=== PATIENT | female | born 1960 | race Caucasian/White ===

== ENCOUNTER 2016-09-16 06:48 | Day surgery (SDC) | payer OTHER ==
[~2016-09-16] VITALS: Ht 160 cm; Wt 67.6 kg
[~2016-09-16 06:48] MED LIST: FLAGYL500 MG PO; FLEXERIL10 MG PO; INDERAL40 MG PO; LEXAPRO20 MG PO; MOBIC7.5 MG PO; NEURONTIN300 MG PO; OXAYDO5 MG PO; PRILOSEC20 MG PO; SINGULAIR10 MG PO; TAPAZOLE10 MG PO; TOPAMAX50 MG PO; UNSURE OF MEDS; VIBRAMYCIN100 MG PO; ZOCOR20 MG PO; ZYRTEC10 M2 PO
== END 2016-09-16 09:10 | disposition home or self-care (01) ==
LOC: PAIN 06:48 → SDC 07:30 → PAIN 09:10
PROC: 3E0S33Z Introduction of Anti-inflammatory into Epidural Space, Percutaneous Approach (ICD-10-PCS; principal; 2016-09-16)
DX: M54.13 Radiculopathy, cervicothoracic region (principal); M50.23 Other cervical disc displacement, cervicothoracic region; M48.02 Spinal stenosis, cervical region; F41.1 Generalized anxiety disorder; K21.9 Gastro-esophageal reflux disease without esophagitis; F17.200 Nicotine dependence, unspecified, uncomplicated; I10 Essential (primary) hypertension; E05.90 Thyrotoxicosis, unspecified without thyrotoxic crisis or storm; E78.5 Hyperlipidemia, unspecified; F32.9 Major depressive disorder, single episode, unspecified
CPT/HCPCS: J1030; J2250; J3010

== ENCOUNTER 2016-11-30 12:32 | Day surgery (SDC) | payer OTHER ==
[~2016-11-30] VITALS: Ht 160 cm; Wt 69.5 kg
[~2016-11-30 12:32] MED LIST changes: +QUESTRAN PACKET4 GM PO
[2016-12-03] MEDS ORDERED: ZANAFLEX4 MG PO (08:52)
[2016-12-03] MEDS ORDERED: TAPAZOLE10 MG PO (08:53)
[2016-12-03] MEDS ORDERED: OMEPRAZOLE40 M1 PO (08:59)
[2016-12-03] MEDS ORDERED: FLONASE ALLERG9.9 ML BOTH NARES (08:59)
== END 2016-11-30 14:50 | disposition home or self-care (01) ==
LOC: PAIN 12:32 → SDC 13:15 → PAIN 14:50
DX: M47.22 Other spondylosis with radiculopathy, cervical region (principal); F41.9 Anxiety disorder, unspecified; M48.02 Spinal stenosis, cervical region; M47.816 Spondylosis without myelopathy or radiculopathy, lumbar region; M62.838 Other muscle spasm; M19.90 Unspecified osteoarthritis, unspecified site; K21.9 Gastro-esophageal reflux disease without esophagitis; I10 Essential (primary) hypertension; E03.9 Hypothyroidism, unspecified; G43.909 Migraine, unspecified, not intractable, without status migrainosus; F17.210 Nicotine dependence, cigarettes, uncomplicated; E78.5 Hyperlipidemia, unspecified; Z88.0 Allergy status to penicillin; Z88.2 Allergy status to sulfonamides
CPT/HCPCS: J1030; J2250; J3010; S0020

== ENCOUNTER 2016-12-07 10:40 | Day surgery (SDC) | payer OTHER ==
[~2016-12-07] VITALS: Ht 160 cm; Wt 69.5 kg
[~2016-12-07 10:40] MED LIST changes: +FLONASE ALLERG9.9 ML BOTH NARES; +OMEPRAZOLE40 M1 PO; +ZANAFLEX4 MG PO
== END 2016-12-07 12:46 | disposition home or self-care (01) ==
LOC: PAIN 10:40 → SDC 11:30 → PAIN 11:30
DX: M47.22 Other spondylosis with radiculopathy, cervical region (principal); F41.9 Anxiety disorder, unspecified; M54.2 Cervicalgia; M48.02 Spinal stenosis, cervical region; M47.816 Spondylosis without myelopathy or radiculopathy, lumbar region; M62.838 Other muscle spasm; M19.90 Unspecified osteoarthritis, unspecified site; K21.9 Gastro-esophageal reflux disease without esophagitis; I83.10 Varicose veins of unspecified lower extremity with inflammation; I10 Essential (primary) hypertension; E03.9 Hypothyroidism, unspecified; G43.909 Migraine, unspecified, not intractable, without status migrainosus; Z88.0 Allergy status to penicillin; Z88.2 Allergy status to sulfonamides
CPT/HCPCS: J1030; J2250; J3010; S0020

== ENCOUNTER 2017-04-04 07:52 | Day surgery (SDC) | payer OTHER ==
[~2017-04-04] VITALS: Ht 160 cm; Wt 72.1 kg
[~2017-04-04 07:52] MED LIST changes: +ENDOCET 5-3251 EACH PO
== END 2017-04-04 10:42 | disposition home or self-care (01) ==
LOC: PAIN 07:52 → SDC 08:30 → PAIN 10:42
PROC: 01513ZZ Destruction of Cervical Nerve, Percutaneous Approach (ICD-10-PCS; principal; 2017-04-04)
DX: M47.22 Other spondylosis with radiculopathy, cervical region (principal); M48.02 Spinal stenosis, cervical region; F41.9 Anxiety disorder, unspecified; M47.816 Spondylosis without myelopathy or radiculopathy, lumbar region; I10 Essential (primary) hypertension; E05.90 Thyrotoxicosis, unspecified without thyrotoxic crisis or storm; G43.909 Migraine, unspecified, not intractable, without status migrainosus; K21.9 Gastro-esophageal reflux disease without esophagitis; E03.9 Hypothyroidism, unspecified; E78.5 Hyperlipidemia, unspecified; G62.9 Polyneuropathy, unspecified; F17.210 Nicotine dependence, cigarettes, uncomplicated; Z88.0 Allergy status to penicillin; Z88.2 Allergy status to sulfonamides
CPT/HCPCS: J1030; J2250; J3010

== ENCOUNTER 2017-04-11 07:38 | Day surgery (SDC) | payer OTHER ==
[~2017-04-11] VITALS: Ht 160 cm; Wt 72.1 kg
== END 2017-04-11 09:30 | disposition home or self-care (01) ==
LOC: PAIN 07:38 → SDC 08:30 → PAIN 08:30
PROC: 01513ZZ Destruction of Cervical Nerve, Percutaneous Approach (ICD-10-PCS; principal; 2017-04-11)
DX: M47.22 Other spondylosis with radiculopathy, cervical region (principal); M47.816 Spondylosis without myelopathy or radiculopathy, lumbar region; M62.838 Other muscle spasm; F41.9 Anxiety disorder, unspecified; G62.9 Polyneuropathy, unspecified; I10 Essential (primary) hypertension; E03.9 Hypothyroidism, unspecified; G43.909 Migraine, unspecified, not intractable, without status migrainosus; F17.210 Nicotine dependence, cigarettes, uncomplicated; K21.9 Gastro-esophageal reflux disease without esophagitis; E05.90 Thyrotoxicosis, unspecified without thyrotoxic crisis or storm; E78.5 Hyperlipidemia, unspecified; Z88.0 Allergy status to penicillin; Z88.2 Allergy status to sulfonamides
CPT/HCPCS: J1030; J2250; J3010; S0020

== ENCOUNTER → 2017-08-24 | Outpatient (CLI) | payer OTHER | END | disposition home or self-care (01) | LOC: NUC 07:00 | DX: R68.81 Early satiety (principal); R10.13 Epigastric pain; R11.0 Nausea | CPT/HCPCS: 78264; A9541 ==

== ENCOUNTER 2017-09-29 10:47 | Day surgery (SDC) | payer OTHER ==
[~2017-09-29] VITALS: Ht 160 cm; Wt 72.6 kg
[~2017-09-29 10:47] MED LIST changes: +COQ1050 MG PO; +REGLAN5 MG PO; +TAPAZOLE5 MG PO; +VENTOLIN HFA18 GM IH; +ZOFRAN4 MG PO
== END 2017-09-29 12:30 | disposition home or self-care (01) ==
LOC: PAIN 10:47 → SDC 11:30 → PAIN 11:30
DX: M47.816 Spondylosis without myelopathy or radiculopathy, lumbar region (principal); M54.16 Radiculopathy, lumbar region; M47.812 Spondylosis without myelopathy or radiculopathy, cervical region; M54.12 Radiculopathy, cervical region; I10 Essential (primary) hypertension; E78.00 Pure hypercholesterolemia, unspecified; K21.9 Gastro-esophageal reflux disease without esophagitis; E03.9 Hypothyroidism, unspecified; F17.200 Nicotine dependence, unspecified, uncomplicated; G62.9 Polyneuropathy, unspecified; M48.02 Spinal stenosis, cervical region; Z79.891 Long term (current) use of opiate analgesic; Z88.0 Allergy status to penicillin; Z88.2 Allergy status to sulfonamides
CPT/HCPCS: J1030; J2250; J3010; S0020

== ENCOUNTER 2017-10-06 07:59 | Day surgery (SDC) | payer OTHER ==
[~2017-10-06] VITALS: Ht 160 cm; Wt 72.6 kg
== END 2017-10-06 09:43 | disposition home or self-care (01) ==
LOC: PAIN 07:59 → SDC 08:45 → PAIN 09:43
DX: M47.816 Spondylosis without myelopathy or radiculopathy, lumbar region (principal); M54.16 Radiculopathy, lumbar region; M47.812 Spondylosis without myelopathy or radiculopathy, cervical region; G62.9 Polyneuropathy, unspecified; M48.02 Spinal stenosis, cervical region; M54.12 Radiculopathy, cervical region; K21.9 Gastro-esophageal reflux disease without esophagitis; I10 Essential (primary) hypertension; E78.00 Pure hypercholesterolemia, unspecified; E03.9 Hypothyroidism, unspecified; Z79.891 Long term (current) use of opiate analgesic; Z88.2 Allergy status to sulfonamides; Z88.0 Allergy status to penicillin; F17.200 Nicotine dependence, unspecified, uncomplicated
CPT/HCPCS: 93005; J1030; J2250; J3010; S0020

== ENCOUNTER 2018-01-23 09:16 | Day surgery (SDC) | payer OTHER ==
[~2018-01-23] VITALS: Ht 160 cm; Wt 72.6 kg
[~2018-01-23 09:16] MED LIST changes: +CYMBALTA60 MG PO
== END 2018-01-23 10:50 | disposition home or self-care (01) ==
LOC: PAIN 09:16 → SDC 10:00 → PAIN 10:50
DX: M47.816 Spondylosis without myelopathy or radiculopathy, lumbar region (principal); M54.16 Radiculopathy, lumbar region; M47.812 Spondylosis without myelopathy or radiculopathy, cervical region; I10 Essential (primary) hypertension; E03.9 Hypothyroidism, unspecified; K21.9 Gastro-esophageal reflux disease without esophagitis; R00.1 Bradycardia, unspecified; E78.5 Hyperlipidemia, unspecified; G62.9 Polyneuropathy, unspecified; Z88.0 Allergy status to penicillin; Z88.2 Allergy status to sulfonamides; Z88.1 Allergy status to other antibiotic agents; F17.200 Nicotine dependence, unspecified, uncomplicated; Z79.891 Long term (current) use of opiate analgesic
CPT/HCPCS: J1030; J2250; S0020

== ENCOUNTER 2018-01-30 09:20 | Day surgery (SDC) | payer OTHER ==
[~2018-01-30] VITALS: Ht 160 cm; Wt 72.6 kg
== END 2018-01-30 11:20 | disposition home or self-care (01) ==
LOC: PAIN 09:20 → SDC 10:00 → PAIN 10:00
PROC: 3E0T33Z Introduction of Anti-inflammatory into Peripheral Nerves and Plexi, Percutaneous Approach (ICD-10-PCS; principal; 2018-01-30)
PROC: 3E0T3BZ Introduction of Anesthetic Agent into Peripheral Nerves and Plexi, Percutaneous Approach (ICD-10-PCS; principal; 2018-01-30)
PROC: BR161ZZ Fluoroscopy of Lumbar Facet Joint(s) using Low Osmolar Contrast (ICD-10-PCS; principal; 2018-01-30)
DX: M47.816 Spondylosis without myelopathy or radiculopathy, lumbar region (principal); M62.838 Other muscle spasm; M54.16 Radiculopathy, lumbar region; G62.9 Polyneuropathy, unspecified; M41.9 Scoliosis, unspecified; K21.9 Gastro-esophageal reflux disease without esophagitis; E78.00 Pure hypercholesterolemia, unspecified; I10 Essential (primary) hypertension; E05.90 Thyrotoxicosis, unspecified without thyrotoxic crisis or storm; F17.200 Nicotine dependence, unspecified, uncomplicated; Z88.0 Allergy status to penicillin; Z88.1 Allergy status to other antibiotic agents; Z88.2 Allergy status to sulfonamides
CPT/HCPCS: J1030; J2250; S0020